=== PATIENT | female | born 1970 | race American Indian/Alaskan Native ===

== ENCOUNTER 2017-10-02 10:22 | Day surgery (SDC) | payer BC ==
[2017-09-28 10:49] VITALS: BMI 29.9
[2017-10-02] MEDS ORDERED: Propofol 10 mg/ml Inj (20 ML) ONE (11:31)
[2017-10-02] MEDS ORDERED: ePHEDrine 50 mg/ml Inj ONE (11:32)
[2017-10-02] MEDS ORDERED: Phenylephrine 10 mg/ml Inj ONE (11:32)
[2017-10-02] MEDS ORDERED: Succinylcholine 200 mg/10 ml Inj IV ONE (11:32)
[2017-10-02] MEDS ORDERED: Midazolam 2 MG/2 ML VIAL ONE (11:32)
[2017-10-02] MEDS ORDERED: Lactated Ringer's 1,000 ML IV ONE (12:10)
[2017-10-02] MEDS ORDERED: cefOXitin IV 1 gm in Dextrose 1 GM/50 ML BAG IVPB ONE (12:25)
[2017-10-02] MEDS ORDERED: DiphenhydrAMINE 50 mg/ml Inj IVP PRN (13:33)
[2017-10-02 14:43] VITALS: BP 125/75; PULSE 78; RESP 18; TEMP 98.4; O2SAT 98
--- NOTE | 2017-10-04 01:58 | OP ---
PROCEDURE DATE: 10/02/2017 PREOPERATIVE DIAGNOSIS: Abnormal uterine bleeding. POSTOPERATIVE DIAGNOSIS: Abnormal uterine bleeding. SURGEON: Paxton Navarrete MD ANESTHESIOLOGIST: Dr. Walker. ANESTHESIA: General anesthesia. DESCRIPTION OF PROCEDURE: With the patient in dorsal lithotomy position, the patient was prepped and draped in the usual sterile manner. After this was done, a straight catheter was used to enter the bladder. Following this, the cervix was grasped with single tooth tenaculum anteriorly and a weighted speculum was placed in the posterior vagina. However, it became extremely difficulty to enter the cervix, which is basically stenotic. After several trials of entering the cervix, the procedure was abandoned and the patient was awakened and told of the problem and total abdominal hysterectomy. The patient is in satisfactory condition on her way to recovery room. Paxton Navarrete MD
== END 2017-10-02 15:20 | disposition home or self-care (01) ==
LOC: H.OPSURG 10:22
PROVIDERS: ATTEND Specialist
DX: D25.2 Subserosal leiomyoma of uterus (principal); E11.9 Type 2 diabetes mellitus without complications; I10 Essential (primary) hypertension
CPT/HCPCS: 58555; 82948; J0330; J0694; J2001; J2250; J2370; J2405; J2704; J3010; J7030; J7120

== ENCOUNTER 2017-10-23 06:50 | Inpatient (IN) | payer BC ==
[2017-10-19 12:07] VITALS: BMI 30.5
[2017-10-23 08:05] LABS: HEMOGLOBIN 11.6 g/dL (12.0-16.0); MEAN CELL VOLUME 78.4 fl (81.0-99.0); MEAN CORPUSCULAR HEMOGLOBIN 25.4 pg (27.0-31.0); MEAN CORPUSCULAR HGB CONC 32.4 g/dL (33.0-37.0); RBC 4.57 Mil/uL (3.80-5.20); RED CELL DISTRIBUTION WIDTH 16.6 % (11.5-14.5); WHITE BLOOD COUNT 6.7 K/uL (4.8-10.8)
--- NOTE | 2017-10-23 08:17 | CP.PCM.HP ---
History of Present Illness - History of Present Illness History of Present Illness: fibroid uterus pelvic pain Present on Admission - Present on Admission Any Indicators Present on Admission: No Review of Systems - Review of Systems Systems not reviewed;Unavailable: Acuity of Condition - Constitutional Constitutional: As Per HPI - EENT Eyes: As Per HPI Nose/Mouth/Throat: As Per HPI - Breasts Breasts: As Per HPI - Cardiovascular Cardiovascular: As Per HPI - Respiratory Respiratory: As Per HPI - Gastrointestinal Gastrointestinal: As Per HPI - Genitourinary Genitourinary: As Per HPI - Reproductive: Female Reproductive:Female: As Per HPI - Menstruation Menstruation: As Per HPI - Musculoskeletal Musculoskeletal: As Per HPI - Integumentary Integumentary: As Per HPI, Change in Nails - Neurological Neurological: As Per HPI - Psychiatric Psychiatric: As Per HPI - Endocrine Endocrine: As Per HPI - Hematologic/Lymphatic Hematologic: As Per HPI Past Patient History - Past Medical History & Family History Past Medical History?: Yes - Past Social History Smoking Status: Never Smoked - CARDIAC Hx Cardiac Disorders: Yes Hx Hypertension: Yes - PULMONARY Hx Respiratory Disorders: No - NEUROLOGICAL Hx Neurological Disorder: No - HEENT Hx HEENT Problems: No - RENAL Hx Chronic Kidney Disease: No - ENDOCRINE/METABOLIC Hx Endocrine Disorders: Yes Hx Diabetes Mellitus Type 2: Yes - HEMATOLOGICAL/ONCOLOGICAL Hx Blood Disorders: No - INTEGUMENTARY Hx Dermatological Problems: No - MUSCULOSKELETAL/RHEUMATOLOGICAL Hx Musculoskeletal Disorders: No - GASTROINTESTINAL Hx Gastrointestinal Disorders: No - GENITOURINARY/GYNECOLOGICAL Hx Genitourinary Disorders: No - PSYCHIATRIC Hx Psychophysiologic Disorder: No Hx Substance Use: No - SURGICAL HISTORY Hx Surgeries: Yes Hx Breast Biopsy: Yes (right) Other/Comment: fibroids removed - ANESTHESIA Hx Anesthesia: Yes Hx Anesthesia Reactions: No Meds Allergies/Adverse Reactions: Allergies Allergy/AdvReac Type Severity Reaction Status Date / Time No Known Allergies Allergy Unverified 10/02/17 11:13 Results - Vital Signs Recent Vital Signs: Last Vital Signs Temp 98.4 F 10/23/17 07:20 Pulse 88 10/23/17 07:23 Resp 20 10/23/17 07:20 BP 159/92 H 10/23/17 07:20 Pulse Ox 99 10/23/17 07:20 - Labs Result Diagrams: 10/23/17 07:55 Labs: Laboratory Results - last 24 hr 10/23/17 10/23/17 07:30 07:55 WBC 6.7 RBC 4.57 Hgb 11.6 L Hct 35.8 MCV 78.4 L MCH 25.4 L MCHC 32.4 L RDW 16.6 H Plt Count 270 POC Glucose (mg/dL) 191 H Assessment & Plan - Assessment and Plan (Free Text) Assessment: fibroid uteru s pelvic pain Plan: admit for kevin possibly bso - Date & Time Date: 10/23/17 Time: 08:20
[2017-10-23] MEDS ORDERED: Midazolam 2 MG/2 ML VIAL ONE (08:19)
[2017-10-23] MEDS ORDERED: Propofol 10 mg/ml Inj (20 ML) ONE (08:19)
[2017-10-23] MEDS ORDERED: Rocuronium 10 mg/ml (5 ml) ONE (08:19)
[2017-10-23] MEDS ORDERED: Succinylcholine 200 mg/10 ml Inj IV ONE (08:19)
--- NOTE | 2017-10-23 08:24 | CARD ---
APPROVED REPORT Date of service: 10/23/2017 <Conclusion> Normal sinus rhythm Voltage criteria for left ventricular hypertrophy Nonspecific T wave abnormality Abnormal ECG
--- NOTE | 2017-10-23 08:24 | CP.PCM.HP ---
Present on Admission - Present on Admission Any Indicators Present on Admission: No Past Patient History - Past Medical History & Family History Past Medical History?: Yes - Past Social History Smoking Status: Never Smoked - CARDIAC Hx Cardiac Disorders: Yes Hx Hypertension: Yes - PULMONARY Hx Respiratory Disorders: No - NEUROLOGICAL Hx Neurological Disorder: No - HEENT Hx HEENT Problems: No - RENAL Hx Chronic Kidney Disease: No - ENDOCRINE/METABOLIC Hx Endocrine Disorders: Yes Hx Diabetes Mellitus Type 2: Yes - HEMATOLOGICAL/ONCOLOGICAL Hx Blood Disorders: No - INTEGUMENTARY Hx Dermatological Problems: No - MUSCULOSKELETAL/RHEUMATOLOGICAL Hx Musculoskeletal Disorders: No - GASTROINTESTINAL Hx Gastrointestinal Disorders: No - GENITOURINARY/GYNECOLOGICAL Hx Genitourinary Disorders: No - PSYCHIATRIC Hx Psychophysiologic Disorder: No Hx Substance Use: No - SURGICAL HISTORY Hx Surgeries: Yes Hx Breast Biopsy: Yes (right) Other/Comment: fibroids removed - ANESTHESIA Hx Anesthesia: Yes Hx Anesthesia Reactions: No Meds Allergies/Adverse Reactions: Allergies Allergy/AdvReac Type Severity Reaction Status Date / Time No Known Allergies Allergy Unverified 10/02/17 11:13 Results - Vital Signs Recent Vital Signs: Last Vital Signs Temp 98.4 F 10/23/17 07:20 Pulse 88 10/23/17 07:23 Resp 20 10/23/17 07:20 BP 159/92 H 10/23/17 07:20 Pulse Ox 99 10/23/17 07:20 - Labs Result Diagrams: 10/23/17 07:55 Labs: Laboratory Results - last 24 hr 10/23/17 10/23/17 10/23/17 07:30 07:55 07:55 WBC 6.7 RBC 4.57 Hgb 11.6 L Hct 35.8 MCV 78.4 L MCH 25.4 L MCHC 32.4 L RDW 16.6 H Plt Count 270 POC Glucose (mg/dL) 191 H BBK History Checked Patient has bt
[2017-10-23] MEDS ORDERED: ceFAZolin IV 1 gm in Dextrose 0 GM/0 ML BAG IVPB ONE (08:35)
[2017-10-23] MEDS ORDERED: cefOXitin IV 1 gm in Dextrose 1 GM/50 ML BAG IVPB ONE (08:39)
[2017-10-23] MEDS ORDERED: Lactated Ringer's 1,000 ML IV ONE ×3 (08:52→11:00)
[2017-10-23] MEDS: HYDROmorphone 0.5 mg/0.5 ml ISec IVP PRN ×3 (12:50→13:28)
[2017-10-23] MEDS: cefOXitin IV 1 gm in Dextrose 1 GM/50 ML BAG IVPB SCH ×2 (16:30→21:03)
[2017-10-23] MEDS: Lactated Ringer's 1,000 ML IV SCH (17:44)
[2017-10-24] MEDS: Lactated Ringer's 1,000 ML IV SCH (04:52)
--- NOTE | 2017-10-24 10:06 | CP.PCM.PN ---
Subjective - Date & Time of Evaluation Date of Evaluation: 10/24/17 Time of Evaluation: 10:05 - Subjective Subjective: c/o incisional pain Objective - Vital Signs/Intake and Output Vital Signs (last 24 hours): Temp Pulse Resp BP Pulse Ox 97.4 F L 69 22 108/66 100 10/24/17 07:46 10/24/17 07:46 10/24/17 07:46 10/24/17 07:46 10/24/17 07:46 Intake and Output: 10/24/17 10/24/17 06:59 18:59 Intake Total 1300 Output Total 750 Balance 550 - Medications Medications: Current Medications Lactated Ringer's (Lactated Ringer's) 1,000 mls @ 100 mls/hr IV .Q10H [facility] Last Admin: 10/24/17 04:52 Dose: 100 mls/hr Ketorolac Tromethamine (Toradol) 30 mg IVP Q6 [facility] Last Admin: 10/24/17 10:01 Dose: 30 mg - Labs Labs: 10/23/17 07:55 - Eye Exam Additional comments: v.s stable afebrile Assessment and Plan - Assessment and Plan (Free Text) Assessment: stable pod 1 s/p kevin rso lysis of adhesions Plan: continue present care oob with assistance regular diet may shower
[2017-10-24] MEDS: Oxycodone/Acetaminophen 5/325 mg Tab PO PRN ×2 (12:34→19:47)
[2017-10-25 08:14] VITALS: BP 128/78; PULSE 83; RESP 22; TEMP 98.1; O2SAT 96
--- NOTE | 2017-10-25 12:13 | CP.PCM.PN ---
Subjective - Date & Time of Evaluation Date of Evaluation: 10/25/17 Time of Evaluation: 12:11 - Subjective Subjective: Denies SOB, chest or leg pain Denies n/V Flatus + but no BM yet Wants to go home Denies C/F Objective - Vital Signs/Intake and Output Vital Signs (last 24 hours): Temp Pulse Resp BP Pulse Ox 98.1 F 83 22 128/78 96 10/25/17 08:13 10/25/17 08:13 10/25/17 08:13 10/25/17 08:13 10/25/17 08:13 Intake and Output: 10/25/17 10/25/17 06:59 18:59 Intake Total 240 Balance 240 - Medications Medications: Current Medications Bisacodyl (Dulcolax) 10 mg HI ONCE ONE Stop: 10/25/17 12:11 Ketorolac Tromethamine (Toradol) 30 mg IVP Q6 [facility] Last Admin: 10/25/17 09:26 Dose: 30 mg Oxycodone/Acetaminophen (Percocet 5/325 Mg Tab) 1 tab PO Q4 PRN PRN Reason: Pain, moderate (4-7) Stop: 10/27/17 12:28 Last Admin: 10/24/17 19:47 Dose: 1 tab - Labs Labs: 10/23/17 07:55 - Constitutional Appears: Well, No Acute Distress - Head Exam Head Exam: ATRAUMATIC - Neck Exam Neck Exam: Full ROM, Normal Inspection - Respiratory Exam Respiratory Exam: NORMAL BREATHING PATTERN - GI/Abdominal Exam GI & Abdominal Exam: Soft, Normal Bowel Sounds Additional comments: ND depressible Dressing removed mamadou in place no active bleeding or sign of infection - Extremities Exam Additional comments: no calf tenderness no edema - Neurological Exam Neurological Exam: Alert, Awake, Oriented x3 - Psychiatric Exam Psychiatric exam: Normal Affect, Normal Mood Assessment and Plan - Assessment and Plan (Free Text) Assessment: stable POD #2 Plan: Dulcolax suppt and D/C home with instructions and rx given Appt to see Dr Tian 1 wk
--- NOTE | 2017-10-25 12:19 | CP.PCM.DIS ---
Provider - Provider Date of Admission: 10/23/17 12:02 Attending physician: Paxton Navarrete MD Primary care physician: NO FAMILY PROVIDER Time Spent in preparation of Discharge (in minutes): 5 Diagnosis - Discharge Diagnosis (1) Leiomyoma of uterus Status: Chronic (2) Pelvic pain Status: Chronic Hospital Course - Lab Results Lab Results: Most Recent Lab Values WBC 6.7 K/uL (4.8-10.8) 10/23/17 07:55 RBC 4.57 Mil/uL (3.80-5.20) 10/23/17 07:55 Hgb 11.6 g/dL (12.0-16.0) L 10/23/17 07:55 Hct 35.8 % (34.0-47.0) 10/23/17 07:55 MCV 78.4 fl (81.0-99.0) L 10/23/17 07:55 MCH 25.4 pg (27.0-31.0) L 10/23/17 07:55 MCHC 32.4 g/dL (33.0-37.0) L 10/23/17 07:55 RDW 16.6 % (11.5-14.5) H 10/23/17 07:55 Plt Count 270 K/uL (130-400) 10/23/17 07:55 POC Glucose (mg/dL) 225 mg/dL (65-110) H 10/23/17 12:22 Blood Type A POSITIVE 10/23/17 07:55 Antibody Screen Negative 10/23/17 07:55 BBK History Checked Patient has bt 10/23/17 07:55 - Hospital Course Hospital Course: underwent subtotal abdominal hysterectomy and unilateral salpingo_oophorectomy Postop course not complicated Discharge Exam - Head Exam Head Exam: ATRAUMATIC - Respiratory Exam Respiratory Exam: NORMAL BREATHING PATTERN - GI/Abdominal Exam GI & Abdominal Exam: Normal Bowel Sounds, Soft Additional comments: incision clean and dry - Extremities Exam Additional comments: no calf tenderness - Psychiatric Exam Psychiatric exam: Normal Affect, Normal Mood Discharge Plan - Follow Up Plan Condition: GOOD Additional Instructions: Follow up office 1 wk, pelvic and bed rest Referrals: FAMILY PROVIDER,NO [Primary Care Provider] -
[2017-10-25] MEDS ORDERED: Chlorhexidine Gluconate 1 APPL/PKT TP ONE (12:20)
--- NOTE | 2017-10-26 21:35 | OP ---
Copied To: Paxton Navarrete MD Attending MD: Paxton Navarrete MD PROCEDURE DATE: 10/23/2017 PREOPERATIVE DIAGNOSES: Fibroid uterus, pelvic pain, and abnormal uterine bleeding. POSTOPERATIVE DIAGNOSES: Fibroid uterus, pelvic pain, and abnormal uterine bleeding. Pending pathology. SURGEON: Paxton Navarrete MD ORTHOTIC TECHNICIAN: Romie Jameson MD ANESTHESIA ADMINISTRATED BY: Velasquez Macias MD ANESTHESIA: General anesthesia. PROCEDURE: Subtotal abdominal hysterectomy with lysis of adhesion. DESCRIPTION OF PROCEDURE: With the patient in the supine position under general anesthesia, the patient was prepped and draped in the usual sterile manner. A Pfannenstiel incision was made and taken down to the fascia in layers. Fascia was incised and extended bilaterally. Muscle was from the fascia by sharp dissection after which the muscle was opened in the midline with Tammy clamps. The peritoneum was grasped, incised, and extended vertically. Upon entering the abdominopelvic cavity, there were multiple adhesions of the uterus to omentum, uterus sidewall. These adhesions were lysed sequentially. Dr. Jameson was present from the beginning and helped in preparation of the surgery as he assisted each way of the surgery. Once the adhesions were lysed completely, the round ligaments were clamped, doubly clamped, cut and ligated bilaterally. After this was done, due to the distortion of the uterus, the uterine vessels were then clamped, doubly clamped, cut and ligated, maintaining hemostasis. This was done bilaterally. Dr. Jameson doing his side and I am doing my side. After this was done, the cervix. The uterus was then removed, and the cervix left into place. After this was done, the angled sutures were placed on the cervix, and the cervix was also closed with running interlocking to maintain hemostasis. Once this was done, the left ovary was left into place and that was not removed. Right ovary was attached to the uterus on the right side. After this was done, pelvic cavity was irrigated until clean and the pelvis was . Following this, the peritoneum was grasped and closed with 2-0 Vicryl. The muscle was approximated with 2-0 Vicryl. The subcutaneous layer was closed with 2-0 plain and the skin was closed with mamadou. The patient tolerated the procedure well and was in satisfactory condition on the way to recovery room. Dr. Jameson was present from the beginning of the surgery to the end of the last staple. Paxton Navarrete MD
== END 2017-10-25 16:58 | disposition home or self-care (01) | DRG 743 ==
LOC: H.OPSURG 06:50 → H.PEDS 12:02
PROVIDERS: ADMIT Specialist; ATTEND Specialist
PROC: 0DNU0ZZ Release Omentum, Open Approach (ICD-10-PCS; 2017-10-23)
PROC: 0UT90ZZ Resection of Uterus, Open Approach (ICD-10-PCS; principal; 2017-10-23 08:00)
DX: D25.9 Leiomyoma of uterus, unspecified (principal); N73.6 Female pelvic peritoneal adhesions (postinfective); N93.9 Abnormal uterine and vaginal bleeding, unspecified; E11.9 Type 2 diabetes mellitus without complications; I10 Essential (primary) hypertension